=== PATIENT | female | born 1965 | race Caucasian/White ===

== ENCOUNTER 2022-01-02 16:59 | Emergency (ER) | payer OTHER ==
[2022-01-02] MEDS ORDERED: CEPHALEXIN500 M1 PO (17:14)
[2022-01-02 17:29] LABS: HEMOGLOBIN 15.6 gm/dl (12.3-15.3); RED BLOOD COUNT 4.88 M/UL (4.00-5.10); WHITE BLOOD COUNT 10.5 K/UL (4.5-11.0)
[2022-01-02 18:07] LABS: BUN/CREATININE RATIO 23 (0-10)
[2022-01-02] MEDS ORDERED: CATAPRES 0.1MG0.1 MG PO (20:49)
== END 2022-01-02 20:57 | disposition home or self-care (01) ==
LOC: ER1 16:59
PROVIDERS: Physician Assistant
DX: R07.2 Precordial pain (principal); I10 Essential (primary) hypertension; E78.5 Hyperlipidemia, unspecified; E07.9 Disorder of thyroid, unspecified; Z90.49 Acquired absence of other specified parts of digestive tract; Z88.8 Allergy status to other drugs, medicaments and biological substances
CPT/HCPCS: 71045; 80053; 82550; 82553; 83690; 84484; 85025; 85379; 93005; 99285